=== PATIENT | male | born 1930 | race African-American/Black ===

== ENCOUNTER 2019-05-30 22:19 | Emergency (ER) | payer MEDICARE, MEDICAID ==
[~2019-05-30] VITALS: Ht 170.2 cm; Wt 88.0 kg
[~2019-05-30 22:19] MED LIST: ASPIR-LOW81 MG PO; COREG6.25 MG PO; DIABETA5 MG PO; LISINOPRIL20 MG ORAL; PREVACID30 MG PO; ZESTRIL20 MG PO; ZOCOR10 MG ORAL
--- NOTE | 2019-05-30 22:38 | NUR ---
ED Nurse Note: PT WALKED IN C/O LEFT UPPER BACK PAIN FOR ABOUT 15 MIN, DENIES ANY RECENT INJURIES NOR TRAUMA, PT REPORTS IT JUST STARTED HURTING. WILL CONT MONITOR. NO SX RESP DISTRESS. VSS.
[2019-05-30 22:39] VITALS: BP 164/80
[2019-05-30 22:57] LABS: BASOPHILS % (AUTO) 0.8 % (0.0-2.0); EOSINOPHILS % (AUTO) 2.3 % (0.0-3.0); HEMATOCRIT 38.3 % (42.0-52.0); HEMOGLOBIN 13.2 G/DL (14.2-18.0); LYMPHOCYTES % (AUTO) 35.4 % (20.0-45.0); MEAN CORPUSCULAR VOLUME 91 FL (80-99); MONOCYTES % (AUTO) 7.7 % (1.0-10.0); NEUTROPHILS % (AUTO) 53.8 % (45.0-75.0); PLATELET COUNT 141 K/UL (150-450); RED CELL DISTRIBUTION WIDTH 12.8 % (11.6-14.8)
[2019-05-30 23:07] LABS: ANION GAP 8 mmol/L (5-15); BLOOD UREA NITROGEN 19 mg/dL (7-18); CALCIUM 8.9 MG/DL (8.5-10.1); CARBON DIOXIDE 28 MMOL/L (21-32); CHLORIDE 105 MMOL/L (98-107); CREATININE 1.5 MG/DL (0.55-1.30); POTASSIUM 3.6 MMOL/L (3.5-5.1); SODIUM 140 MMOL/L (136-145)
[2019-05-30 23:22] LABS: ALANINE AMINOTRANSFERASE 11 U/L (12-78); ALBUMIN 3.5 G/DL (3.4-5.0); ALBUMIN/GLOBULIN RATIO 0.9 (1.0-2.7); ALKALINE PHOSPHATASE 65 U/L (46-116); ASPARTATE AMINO TRANSFERASE 10 U/L (15-37); BILIRUBIN,TOTAL 0.5 MG/DL (0.2-1.0); CKMB 1.8 NG/ML (0.0-3.6); CREATINE KINASE 176 U/L (26-308)
--- NOTE | 2019-05-30 23:30 | Emergency Room Report ---
History of Present Illness General Chief Complaint: Pain Source: Patient Present Illness HPI 88-year-old male presents with shooting thoracic back pain started at 10 PM feels like electricity, left aspect of his back shooting up his spine, no chest pain, no shortness of breath, no nausea no vomiting, no fever no chills, he states the symptoms come intermittently, he states he has neuropathy, he denies any aggravating or relieving factors, he states that it is mild in severity Allergies: Coded Allergies: LATEX (Unverified Allergy, Severe, 07/29/13) PENICILLINS (Verified Allergy, Severe, RASH, 11/26/12) Patient History Past Medical History: see triage record Reviewed Nursing Documentation: PMH: Agreed; PSxH: Agreed Nursing Documentation-PMH Past Medical History: No History, Except For Hx Cardiac Problems: Yes Hx Hypertension: Yes Hx Diabetes: Yes Hx Cancer: No Hx Gastrointestinal Problems: Yes - STAGE 111 CHRONIC KIDNEY Hx Neurological Problems: No Review of Systems Constitutional: Denies: chills, fever Eye: Denies: blurred vision, double vision ENT: Denies: throat pain, nasal discharge Respiratory: Denies: cough, shortness of breath Cardiovascular: Denies: chest pain, palpitations Gastrointestinal: Denies: abdominal pain, diarrhea, nausea, vomiting Genitourinary: Denies: dysuria, pain Musculoskeletal: Reports: back pain; Denies: muscle pain Skin: Denies: rash, lesions Neurological: Denies: headache, focal weakness Hematologic/Lymphatic: Denies: easy bleeding, easy bruising All Other Systems: negative except mentioned in HPI Physical Exam Vital Signs Date Time Temp Pulse Resp B/P (MAP) Pulse Ox O2 Delivery O2 Flow Rate FiO2 05/30/19 22:23 97.7 71 18 164/80 (108) 95 Room Air Sp02 EP Interpretation: reviewed, normal General Appearance: well appearing, no apparent distress, alert Head: normocephalic, atraumatic Eyes: bilateral eye PERRL, bilateral eye EOMI ENT: uvula midline, moist mucus membranes Neck: supple, thyroid normal, supple/symm/no masses Respiratory: lungs clear, no respiratory distress, no retraction, no accessory muscle use Cardiovascular #1: normal peripheral pulses, regular rate, rhythm, no edema, no gallop, no murmur Gastrointestinal: non tender, soft, no guarding, no rebound Musculoskeletal: normal inspection Neurologic: alert, oriented x3 Psychiatric: mood/affect normal Skin: no rash, warm/dry Medical Decision Making Diagnostic Impression: Primary Impression: Neuralgia ER Course Patient presents with atypical neuropathic pain, no aggravating leaving factors he endorses electricity shooting up and down his spine lasting for a couple of seconds. Patient presents for evaluation, will evaluate for ACS, troponin negative, EKG negative, x-ray negative, low suspicion for pneumonia, low suspicion for ACS, patient most likely with neuropathic pain. No evidence of rash on the back, may be a precursor to zoster given his neuropathic pain Laboratory Tests Test 05/30/19 22:40 White Blood Count 7.0 K/UL (4.8-10.8) Red Blood Count 4.20 M/UL (4.70-6.10) L Hemoglobin 13.2 G/DL (14.2-18.0) L Hematocrit 38.3 % (42.0-52.0) L Mean Corpuscular Volume 91 FL (80-99) Mean Corpuscular Hemoglobin 31.3 PG (27.0-31.0) H Mean Corpuscular Hemoglobin Concent 34.4 G/DL (32.0-36.0) Red Cell Distribution Width 12.8 % (11.6-14.8) Platelet Count 141 K/UL (150-450) L Mean Platelet Volume 6.9 FL (6.5-10.1) Neutrophils (%) (Auto) 53.8 % (45.0-75.0) Lymphocytes (%) (Auto) 35.4 % (20.0-45.0) Monocytes (%) (Auto) 7.7 % (1.0-10.0) Eosinophils (%) (Auto) 2.3 % (0.0-3.0) Basophils (%) (Auto) 0.8 % (0.0-2.0) Sodium Level 140 MMOL/L (136-145) Potassium Level 3.6 MMOL/L (3.5-5.1) Chloride Level 105 MMOL/L (98-107) Carbon Dioxide Level 28 MMOL/L (21-32) Anion Gap 8 mmol/L (5-15) Blood Urea Nitrogen 19 mg/dL (7-18) H Creatinine 1.5 MG/DL (0.55-1.30) H Estimate Glomerular Filtration Rate mL/min (>60) Glucose Level 131 MG/DL (74-106) H Calcium Level 8.9 MG/DL (8.5-10.1) Total Bilirubin 0.5 MG/DL (0.2-1.0) Aspartate Amino Transferase (AST) 10 U/L (15-37) L Alanine Aminotransferase (ALT) 11 U/L (12-78) L Alkaline Phosphatase 65 U/L (46-116) Total Creatine Kinase 176 U/L (26-308) Creatine Kinase MB 1.8 NG/ML (0.0-3.6) Creatine Kinase MB Relative Index 1.0 Troponin I 0.014 ng/mL (0.000-0.056) Pro-B-Type Natriuretic Peptide 228 pg/mL (0-125) H Total Protein 7.6 G/DL (6.4-8.2) Albumin 3.5 G/DL (3.4-5.0) Globulin 4.1 g/dL Albumin/Globulin Ratio 0.9 (1.0-2.7) L EKG Diagnostic Results EKG Time: 22:46 EP Interpretation: NSR, rate 66, QTc 417, no acute ST elevations, normal axis Rate: normal Rhythm: NSR ST Segments: no acute changes ASA given to the pt in ED: No Rhythm Strip Diag. Results Rhythm Strip Time: 23:29 EP Interpretation: yes Rate: 79 Rhythm: NSR Chest X-Ray Diagnostic Results Chest X-Ray Diagnostic Results : Chest X-Ray Ordered: Yes # of Views/Limited/Complete: 1 View Indication: Other - Preop EP Interpretation: Yes Interpretation: no acute cardiopulmonary disease Impression: No acute disease Electronically Signed by: Robin Cunningham MD Last Vital Signs Date Time Temp Pulse Resp B/P (MAP) Pulse Ox O2 Delivery O2 Flow Rate FiO2 05/30/19 22:39 97.7 71 18 164/80 95 Room Air Disposition: HOME, SELF-CARE Condition: Stable Referrals: NOT CHOSEN IPA/,REFERRING (PCP) Patient Instructions: Neuropathic Pain Additional Instructions: The patient was provided with discharge instructions, notified to follow-up with a primary care doctor and or specialist in the next 24-48 hours, and to return to the ED if they have worsening of their symptoms. Please note that this report is being documented using [employer] technology. This can lead to erroneous entry secondary to incorrect interpretation by the dictating instrument. You need a neurologist to evaluate your neuropathic pain, please return to the ED if you have chest pain or shortness of breath Robin Cunningham MD May 30, 2019 23:30
[2019-05-30 23:40] VITALS: BP 164/80
--- NOTE | 2019-05-30 23:40 | NUR ---
ER DISCHARGE NOTE: Patient is cleared to be discharged per ERMD, pt is aox4, on room air, with stable vital signs. pt was given dc and prescription instructions, pt was able to verbalize understanding, pt id band and iv site removed without complications. pt is able to ambulate with steady gait. pt took all belongings.
--- NOTE | 2019-05-31 10:52 | Diagnostic Imaging Report ---
Indication: Dyspnea Comparison: 07/29/2013 A single view chest radiograph was obtained. Findings: Interstitial densities are present throughout the lungs bilaterally. The appearances of more suggestive of chronic disease. Some degree of mild CHF not excluded. Heart is enlarged. Aorta is mildly enlarged. Bones are osteopenic. IMPRESSION: Interstitial disease likely chronic. Superimposed interstitial edema or pneumonitis could be present. Correlate clinically. Suggest follow-up
== END 2019-05-30 23:40 | disposition home or self-care (01) ==
LOC: CANBEDREQ 22:42 → EMR 22:59
DX: M79.2 Neuralgia and neuritis, unspecified (principal); Z88.0 Allergy status to penicillin; Z91.040 Latex allergy status; I12.9 Hypertensive chronic kidney disease with stage 1 through stage 4 chronic kidney disease, or unspecified chronic kidney disease; E11.22 Type 2 diabetes mellitus with diabetic chronic kidney disease; N18.9 Chronic kidney disease, unspecified; E11.40 Type 2 diabetes mellitus with diabetic neuropathy, unspecified
CPT/HCPCS: 36415; 71045; 80053; 82550; 82553; 83880; 84484; 85025; 93005; 99284